=== PATIENT | male | born 1940 | race Caucasian/White ===

== ENCOUNTER 2021-05-27 00:37 | Emergency (ER) | payer OTHER ==
[~2021-05-27] VITALS: Ht 172.7 cm; Wt 61.2 kg
[~2021-05-27 00:37] MED LIST: AML5T PO; CIP500T PO; FOLI1TAB6 PO; GABA300C10 PO; PANT40T PO; TAM04C PO; THI100I IV
[2021-05-27 01:58] LABS: Basophils # (auto) 0 10 ^3/uL (0-0.2); Eosinophils # (auto) 0.1 10 ^3/uL (0-0.8); Lymphocytes # (auto) 0.8 10 ^3/uL (0.4-5.4); Monocytes # (auto) 0.4 10 ^3/uL (0-1.3); Neutrophils # (auto) 3.3 10 ^3/uL (1.6-8.6); Nucleated Red Blood Cells % 0.1 %; White Blood Cell 4.7 10^3/uL (4.4-10.8)
[2021-05-27 02:00] LABS: Basophils % (auto) 0.6 % (0.0-2.0); Eosinophils % (auto) 1.2 % (0.0-7.0); Hematocrit 43.1 % (41.0-53.0); Hemoglobin 15.2 g/dL (13.5-17.5); Lymphocytes % (auto) 17.4 % (10.0-50.0); Mean Corpuscular Hemoglobin 42.1 pg (28.0-32.0); Mean Corpuscular Hgb Conc. 35.4 g/dL (32.0-36.0); Mean Corpuscular Volume 118.8 fL (80.0-100.0); Neutrophils % (auto) 71.8 % (37.0-80.0); Red Blood Cells 3.62 10^6/uL (4.5-5.90); Red Cell Distribution Width 13.7 % (11.8-14.3)
[2021-05-27 02:11] LABS: INR 0.97 (0.9-1.15); Partial Thromboplastin Time 24.6 sec (23.0-31.2)
[2021-05-27 02:12] LABS: Albumin 3.5 g/dL (3.4-5.0); BUN/Creatinine Ratio 8.8; Calcium 7.9 mg/dL (8.5-10.1); Potassium 3.5 mmol/L (3.5-5.1)
[2021-05-27 02:15] LABS: Bilirubin, Total 0.3 mg/dL (0.2-1.0); Total Protein 7.9 g/dL (6.4-8.2)
[2021-05-27] MEDS ORDERED: NICOTINE 14 MG/24HR TOPICAL PATCH TD ONE (05:30)
[2021-05-27] MEDS ORDERED: LABETALOL HCL 5 MG/ML 4ML SYRINGE IV ONE (06:30)
[2021-05-27 06:39] VITALS: BP 173/86
== END 2021-05-27 07:25 | disposition home or self-care (01) ==
LOC: ER 00:37 → EDBD 00:37 → ER 07:25
DX: S00.83XA Contusion of other part of head, initial encounter (principal); J45.909 Unspecified asthma, uncomplicated; E78.5 Hyperlipidemia, unspecified; I10 Essential (primary) hypertension; M17.11 Unilateral primary osteoarthritis, right knee; F10.129 Alcohol abuse with intoxication, unspecified; F17.210 Nicotine dependence, cigarettes, uncomplicated; W18.39XA Other fall on same level, initial encounter; Y93.89 Activity, other specified; Y92.89 Other specified places as the place of occurrence of the external cause; Y99.8 Other external cause status; Y90.8 Blood alcohol level of 240 mg/100 ml or more
CPT/HCPCS: 36415; 70450; 70486; 71045; 72125; 73560; 80053; 80320; 85025; 85049; 85610; 85730; 93005; 96374; 99285; J3490

== ENCOUNTER 2022-09-02 13:49 | Inpatient (IN) | payer OTHER ==
[~2022-09-02] VITALS: Ht 167.6 cm; Wt 64.4 kg
[2022-09-02] MEDS ORDERED: SODIUM CHLORIDE 0.9% 1,000 ML IV ONE ×3 (14:45→18:00)
[2022-09-02] MEDS ORDERED: THIAMINE 100mg/ml INJ (200mg/2ml VIAL) IV ONE (15:00)
[2022-09-02 15:09] LABS: Basophils # (auto) 0 10 ^3/uL (0-0.2); Basophils % (auto) 0.2 % (0.0-2.0); Eosinophils # (auto) 0 10 ^3/uL (0-0.8); Hematocrit 41.9 % (41.0-53.0); Hemoglobin 14.6 g/dL (13.5-17.5); Lymphocytes # (auto) 0.4 10 ^3/uL (0.4-5.4); Lymphocytes % (auto) 2.4 % (10.0-50.0); Mean Corpuscular Hemoglobin 39.3 pg (28.0-32.0); Mean Corpuscular Hgb Conc. 34.9 g/dL (32.0-36.0); Mean Corpuscular Volume 112.7 fL (80.0-100.0); Monocytes # (auto) 1.4 10 ^3/uL (0-1.3); Monocytes % (auto) 8.5 % (0.0-12.0); Neutrophils % (auto) 88.9 % (37.0-80.0); Red Blood Cells 3.72 10^6/uL (4.5-5.90); Red Cell Distribution Width 12.6 % (11.8-14.3); White Blood Cell 16.9 10^3/uL (4.4-10.8)
[2022-09-02 15:25] LABS: INR 0.99 (0.9-1.15); Partial Thromboplastin Time 28.2 sec (24.6-33.4)
[2022-09-02 15:27] LABS: Albumin 3.3 g/dL (3.4-5.0); BUN/Creatinine Ratio 9.3; Calcium 8.6 mg/dL (8.5-10.1)
[2022-09-02 15:30] LABS: Bilirubin, Total 1.2 mg/dL (0.2-1.0); Total Protein 6.8 g/dL (6.4-8.2)
[2022-09-02] MEDS ORDERED: MORPHINE SULFATE INJ 2 MG/ml SYRG IV PRN (17:00)
[2022-09-02] MEDS ORDERED: NICOTINE 7MG/24HR TOPICAL PATCH TD ONE (17:00)
[2022-09-02] MEDS ORDERED: LIDOCAINE 2% JELLY 11ml (GLYDO) UR ONE (17:00)
[2022-09-02] MEDS ORDERED: NITROGLYCERIN 0.4 MG SL TAB SL PRN (17:00)
[2022-09-02] MEDS: FOLIC ACID 1 MG, MULTIPLE VITAMIN 10 ML, THIAMINE INJ 100 MG in SODIUM CHLORIDE 0.9% 1,... INJ SCH (17:15)
[2022-09-02] MEDS: LORazepam 2MG/ML-1ML VIAL IV SCH ×30 (17:15→23:45)
[2022-09-02] MEDS ORDERED: LORazepam 2MG/ML-1ML VIAL IV PRN (17:15)
[2022-09-02] MEDS ORDERED: SPIRONOLACTONE 25 MG TAB PO ONE (17:30)
[2022-09-02] MEDS ORDERED: SODIUM CHL 3% 500 ML IV ONE (18:00)
[2022-09-02 18:43] LABS: Cholesterol 153 mg/dL (< 200)
[2022-09-02 18:46] LABS: HDL Cholesterol 112 mg/dL (40-59); LDL Cholesterol 40 mg/dL (< 100); Triglycerides 62 mg/dL (< 150)
[2022-09-02] MEDS ORDERED: MAGNESIUM SULFATE 1GM/100ML 100 ML IV ONE (19:00)
[2022-09-02 19:57] LABS: Urine Bacteria NONE SEEN /hpf (None Seen); Urine Blood Negative /uL (Negative); Urine Hyaline Cast MOD /lpf (0 - 2); Urine Specific Gravity 1.014 (1.001-1.035); Urine WBC 3 /hpf (0 - 3)
[2022-09-02 20:12] LABS: Amphetamine Screen, Urine NEGATIVE (NEGATIVE); Barbiturate Scree,Urine NEGATIVE (NEGATIVE); Benzodiazephine Screen, Urine NEGATIVE (NEGATIVE); Cannabinoid Screen, Urine NEGATIVE (NEGATIVE); Cocaine Screen, Urine NEGATIVE (NEGATIVE); Opiate Scree,Urine NEGATIVE (NEGATIVE); Phencyclidine Screen, Urine NEGATIVE (NEGATIVE)
[2022-09-02 20:13] LABS: Creatinine, Urine 104 mg/dL (30.0-125.0); Sodium Urine 29 mmol/L (40-220)
[2022-09-02 23:34] VITALS: BP 164/54
[2022-09-03] VITALS (8 sets, daily range): BP systolic 121–174; BP diastolic 51–96
[2022-09-03] MEDS: LORazepam 2MG/ML-1ML VIAL IV SCH ×25 (00:15→11:07)
[2022-09-03 01:38] LABS: BUN/Creatinine Ratio 13.6
[2022-09-03 01:48] LABS: Potassium 2.4 mmol/L (3.5-5.1)
[2022-09-03] MEDS: POTASSIUM CHL 20 Meq TABLET PO SCH ×2 (02:37→04:15)
[2022-09-03] MEDS: HYDROcodone-ACET 5/325MG TAB PO PRN ×2 (06:04→20:21)
[2022-09-03 06:47] LABS: Basophils # (auto) 0.1 10 ^3/uL (0-0.2); Eosinophils # (auto) 0 10 ^3/uL (0-0.8); Neutrophils # (auto) 12.1 10 ^3/uL (1.6-8.6)
[2022-09-03 06:48] LABS: Basophils % (auto) 0.6 % (0.0-2.0); Hematocrit 34.6 % (41.0-53.0); Hemoglobin 12.4 g/dL (13.5-17.5); Lymphocytes # (auto) 0.4 10 ^3/uL (0.4-5.4); Lymphocytes % (auto) 3.1 % (10.0-50.0); Mean Corpuscular Hgb Conc. 35.9 g/dL (32.0-36.0); Mean Corpuscular Volume 114.3 fL (80.0-100.0); Monocytes % (auto) 7.3 % (0.0-12.0); Red Blood Cells 3.03 10^6/uL (4.5-5.90); White Blood Cell 13.6 10^3/uL (4.4-10.8)
[2022-09-03 06:49] LABS: Red Cell Distribution Width 12.4 % (11.8-14.3)
[2022-09-03 07:10] LABS: Albumin 2.5 g/dL (3.4-5.0); Calcium 7.7 mg/dL (8.5-10.1)
[2022-09-03 07:26] LABS: Bilirubin, Total 0.9 mg/dL (0.2-1.0); Total Protein 5.3 g/dL (6.4-8.2)
[2022-09-03 07:57] LABS: Potassium 2.9 mmol/L (3.5-5.1)
[2022-09-03 08:09] LABS: BUN/Creatinine Ratio 11.8
[2022-09-03] MEDS ORDERED: POTASSIUM EFFERVESENT TAB 25 MEQ PO ONE (09:00)
[2022-09-03 09:48] LABS: Magnesium 1.6 mg/dL (1.6-2.6); Phosphorus 2.4 mg/dL (2.5-4.90)
[2022-09-03] MEDS: NICOTINE 7MG/24HR TOPICAL PATCH TD SCH (11:04)
[2022-09-03 12:46] LABS: BUN/Creatinine Ratio 12.3; Calcium 7.8 mg/dL (8.5-10.1); Potassium 3.9 mmol/L (3.5-5.1)
[2022-09-03] MEDS: FOLIC ACID 1 MG, MULTIPLE VITAMIN 10 ML, THIAMINE INJ 100 MG in SODIUM CHLORIDE 0.9% 1,... INJ SCH (14:34)
[2022-09-03] MEDS ORDERED: FUROSEMIDE 40 MG/4 ML VIAL IV ONE (14:45)
[2022-09-03] MEDS ORDERED: D5W 5% 500 ML IV ONE (15:45)
[2022-09-03] MEDS ORDERED: HYDR12.56 PO (16:40)
[2022-09-03] MEDS ORDERED: BACL10TA PO (16:40)
[2022-09-03] MEDS ORDERED: HYDR25TA87 PO (16:40)
[2022-09-03] MEDS ORDERED: TRAZ1TAB12 PO (16:40)
[2022-09-03] MEDS ORDERED: PANT40TA2 PO (16:40)
[2022-09-03] MEDS ORDERED: DOCU-94 PO (16:40)
[2022-09-03] MEDS ORDERED: BUSP10TA90 PO (16:40)
[2022-09-03] MEDS: hydrALAZINE HCL 20 MG/ML VL IV PRN (18:39)
[2022-09-03 18:52] LABS: BUN/Creatinine Ratio 9.1
[2022-09-03 18:58] LABS: Potassium 2.9 mmol/L (3.5-5.1)
[2022-09-03] MEDS ORDERED: POTASSIUM CHL 20 Meq TABLET PO ONE (19:15)
[2022-09-03] MEDS: POTASSIUM CHL 20MEQ/100ML 100 ML IV SCH ×2 (20:09→22:01)
[2022-09-03] MEDS: LORazepam 2MG/ML-1ML VIAL IV PRN (23:08)
[2022-09-04] VITALS (8 sets, daily range): BP systolic 123–169; BP diastolic 64–86
[2022-09-04 04:37] LABS: Basophils # (auto) 0 10 ^3/uL (0-0.2); Eosinophils # (auto) 0 10 ^3/uL (0-0.8); Eosinophils % (auto) 0.1 % (0.0-7.0); Lymphocytes # (auto) 0.8 10 ^3/uL (0.4-5.4); Monocytes # (auto) 1.1 10 ^3/uL (0-1.3)
[2022-09-04 04:41] LABS: Basophils % (auto) 0.1 % (0.0-2.0); Hematocrit 35.7 % (41.0-53.0); Hemoglobin 12.5 g/dL (13.5-17.5); Lymphocytes % (auto) 6.5 % (10.0-50.0); Mean Corpuscular Hemoglobin 40.3 pg (28.0-32.0); Mean Corpuscular Volume 115.1 fL (80.0-100.0); Monocytes % (auto) 8.7 % (0.0-12.0); Neutrophils # (auto) 10.5 10 ^3/uL (1.6-8.6); Neutrophils % (auto) 84.6 % (37.0-80.0); Red Cell Distribution Width 12.6 % (11.8-14.3); White Blood Cell 12.4 10^3/uL (4.4-10.8)
[2022-09-04 04:57] LABS: Calcium 7.8 mg/dL (8.5-10.1); Potassium 4.2 mmol/L (3.5-5.1)
[2022-09-04] MEDS: HYDROcodone-ACET 5/325MG TAB PO PRN ×3 (09:23→23:09)
[2022-09-04] MEDS: THIAMINE 100mg/ml INJ (200mg/2ml VIAL) IV SCH (09:26)
[2022-09-04] MEDS: LORazepam 2MG/ML-1ML VIAL IV PRN ×2 (09:28→20:06)
[2022-09-04] MEDS: hydrALAZINE HCL 20 MG/ML VL IV PRN ×2 (10:42→18:58)
[2022-09-04 11:24] LABS: Magnesium 1.3 mg/dL (1.6-2.6); Phosphorus 1.2 mg/dL (2.5-4.90)
[2022-09-04] MEDS: NICOTINE 7MG/24HR TOPICAL PATCH TD SCH (12:09)
[2022-09-04] MEDS ORDERED: SODIUM PHOSPHATES 40 MEQ in D5W 5% 250 ML IV ONE (14:15)
[2022-09-04] MEDS: MAGNESIUM OXIDE 400 MG TAB PO SCH ×2 (14:29→20:06)
[2022-09-04] MEDS: FOLIC ACID 1 MG, MULTIPLE VITAMIN 10 ML, THIAMINE INJ 100 MG in SODIUM CHLORIDE 0.9% 1,... INJ SCH (15:01)
[2022-09-04] MEDS: MAGNESIUM SULFATE 1GM/100ML 100 ML IV SCH ×3 (15:10→17:54)
[2022-09-05] VITALS (8 sets, daily range): BP systolic 139–198; BP diastolic 69–111
[2022-09-05 04:59] LABS: Basophils # (auto) 0 10 ^3/uL (0-0.2); Eosinophils # (auto) 0 10 ^3/uL (0-0.8); Hematocrit 37.4 % (41.0-53.0); Neutrophils # (auto) 12.8 10 ^3/uL (1.6-8.6); White Blood Cell 14.9 10^3/uL (4.4-10.8)
[2022-09-05 05:02] LABS: Basophils % (auto) 0.1 % (0.0-2.0); Eosinophils % (auto) 0.2 % (0.0-7.0); Lymphocytes # (auto) 0.7 10 ^3/uL (0.4-5.4); Lymphocytes % (auto) 4.5 % (10.0-50.0); Mean Corpuscular Hgb Conc. 34.7 g/dL (32.0-36.0); Mean Corpuscular Volume 115.3 fL (80.0-100.0); Monocytes # (auto) 1.4 10 ^3/uL (0-1.3); Monocytes % (auto) 9.5 % (0.0-12.0); Neutrophils % (auto) 85.7 % (37.0-80.0); Nucleated Red Blood Cells % 0.1 %; Red Blood Cells 3.24 10^6/uL (4.5-5.90); Red Cell Distribution Width 12.3 % (11.8-14.3)
[2022-09-05 05:21] LABS: Potassium 3.3 mmol/L (3.5-5.1)
[2022-09-05 05:28] LABS: Albumin 2.4 g/dL (3.4-5.0); BUN/Creatinine Ratio 9.6; Bilirubin, Total 0.6 mg/dL (0.2-1.0); Calcium 7.5 mg/dL (8.5-10.1); Phosphorus 2.4 mg/dL (2.5-4.90); Total Protein 5.6 g/dL (6.4-8.2)
[2022-09-05] MEDS: HYDROcodone-ACET 5/325MG TAB PO PRN ×3 (08:30→20:40)
[2022-09-05] MEDS: MAGNESIUM OXIDE 400 MG TAB PO SCH ×2 (09:14→22:42)
[2022-09-05] MEDS: THIAMINE 100mg/ml INJ (200mg/2ml VIAL) IV SCH (09:17)
[2022-09-05] MEDS: NICOTINE 7MG/24HR TOPICAL PATCH TD SCH (09:18)
[2022-09-05] MEDS ORDERED: PANTOPRAZOLE 40 MG TAB PO ONE ×2 (12:45→12:53)
[2022-09-05] MEDS: FOLIC ACID 1 MG, MULTIPLE VITAMIN 10 ML, THIAMINE INJ 100 MG in SODIUM CHLORIDE 0.9% 1,... INJ SCH (12:56)
[2022-09-05] MEDS: hydrALAZINE HCL 20 MG/ML VL IV PRN ×2 (13:31→17:26)
[2022-09-05] MEDS ORDERED: amLODIPine BESYLATE 5 MG TAB PO ONE (17:15)
[2022-09-05] MEDS ORDERED: hydrALAZINE HCL 20 MG/ML VL IV ONE (17:15)
[2022-09-05] MEDS: IPRATROPIUM BROM 0.5 MG/2.5ML INH SOL NEB SCH ×2 (19:08→22:02)
[2022-09-05] MEDS: ALBUTEROL SULF 2.5 MG/0.5ML(0.5%) NEB SOLN NEB SCH ×2 (19:08→22:02)
[2022-09-05] MEDS: GABAPENTIN 300 MG CAP PO SCH (22:42)
[2022-09-06 05:00] VITALS: BP 151/67
[2022-09-06] MEDS: GABAPENTIN 300 MG CAP PO SCH ×3 (05:42→21:18)
[2022-09-06] MEDS: hydrALAZINE HCL 20 MG/ML VL IV PRN (05:44)
[2022-09-06] MEDS: ALBUTEROL SULF 2.5 MG/0.5ML(0.5%) NEB SOLN NEB SCH ×6 (06:06→22:31)
[2022-09-06] MEDS: IPRATROPIUM BROM 0.5 MG/2.5ML INH SOL NEB SCH ×6 (06:07→22:31)
[2022-09-06 06:35] LABS: Basophils # (auto) 0 10 ^3/uL (0-0.2); Basophils % (auto) 0.1 % (0.0-2.0); Eosinophils # (auto) 0 10 ^3/uL (0-0.8); Eosinophils % (auto) 0.4 % (0.0-7.0); Hematocrit 35.8 % (41.0-53.0); Hemoglobin 12.9 g/dL (13.5-17.5); Lymphocytes # (auto) 0.8 10 ^3/uL (0.4-5.4); Lymphocytes % (auto) 8.4 % (10.0-50.0); Mean Corpuscular Hemoglobin 40.9 pg (28.0-32.0); Mean Corpuscular Volume 113.7 fL (80.0-100.0); Monocytes # (auto) 1.4 10 ^3/uL (0-1.3); Monocytes % (auto) 14.7 % (0.0-12.0); Neutrophils % (auto) 76.4 % (37.0-80.0); Red Blood Cells 3.15 10^6/uL (4.5-5.90); Red Cell Distribution Width 12.3 % (11.8-14.3); White Blood Cell 9.2 10^3/uL (4.4-10.8)
[2022-09-06 06:46] LABS: BUN/Creatinine Ratio 8.5; Calcium 7.9 mg/dL (8.5-10.1); Magnesium 1.9 mg/dL (1.6-2.6); Phosphorus 2.8 mg/dL (2.5-4.90); Potassium 3.4 mmol/L (3.5-5.1)
[2022-09-06] MEDS: HYDROcodone-ACET 5/325MG TAB PO PRN ×2 (08:57→20:30)
[2022-09-06 09:00] VITALS: BP 119/59
[2022-09-06] MEDS: THIAMINE 100mg/ml INJ (200mg/2ml VIAL) IV SCH (09:37)
[2022-09-06] MEDS: MAGNESIUM OXIDE 400 MG TAB PO SCH ×2 (09:38→21:18)
[2022-09-06] MEDS: hydrALAZINE HCL 25 MG TAB PO SCH (09:38)
[2022-09-06] MEDS: amLODIPine BESYLATE 5 MG TAB PO SCH (09:38)
[2022-09-06] MEDS: PANTOPRAZOLE 40 MG TAB PO SCH (09:39)
[2022-09-06] MEDS: FINASTERIDE 5 MG TAB PO SCH (09:39)
[2022-09-06] MEDS: NICOTINE 7MG/24HR TOPICAL PATCH TD SCH (09:40)
[2022-09-06] MEDS: FOLIC ACID 1 MG, MULTIPLE VITAMIN 10 ML, THIAMINE INJ 100 MG in SODIUM CHLORIDE 0.9% 1,... INJ SCH (11:57)
[2022-09-06 13:00] VITALS: BP 129/66
[2022-09-06] MEDS: LORazepam 2MG/ML-1ML VIAL IV PRN (14:10)
[2022-09-06 17:00] VITALS: BP 121/65
[2022-09-06 21:45] VITALS: BP 128/79
[2022-09-07] MEDS: HYDROcodone-ACET 5/325MG TAB PO PRN ×4 (02:30→22:00)
[2022-09-07 04:33] VITALS: BP 138/62
[2022-09-07] MEDS: GABAPENTIN 300 MG CAP PO SCH ×3 (05:54→21:51)
[2022-09-07] MEDS: IPRATROPIUM BROM 0.5 MG/2.5ML INH SOL NEB SCH ×5 (06:42→18:58)
[2022-09-07 06:43] LABS: Basophils # (auto) 0 10 ^3/uL (0-0.2); Eosinophils # (auto) 0.1 10 ^3/uL (0-0.8)
[2022-09-07 06:47] LABS: Basophils % (auto) 0.2 % (0.0-2.0); Eosinophils % (auto) 1.1 % (0.0-7.0); Hematocrit 33.1 % (41.0-53.0); Hemoglobin 11.7 g/dL (13.5-17.5); Lymphocytes # (auto) 0.8 10 ^3/uL (0.4-5.4); Lymphocytes % (auto) 8.9 % (10.0-50.0); Mean Corpuscular Hemoglobin 40.4 pg (28.0-32.0); Mean Corpuscular Hgb Conc. 35.4 g/dL (32.0-36.0); Mean Corpuscular Volume 114.1 fL (80.0-100.0); Monocytes # (auto) 1.3 10 ^3/uL (0-1.3); Monocytes % (auto) 15.6 % (0.0-12.0); Neutrophils # (auto) 6.3 10 ^3/uL (1.6-8.6); Neutrophils % (auto) 74.2 % (37.0-80.0); Red Cell Distribution Width 12.4 % (11.8-14.3); White Blood Cell 8.4 10^3/uL (4.4-10.8)
[2022-09-07 07:03] LABS: Calcium 7.7 mg/dL (8.5-10.1); Potassium 3.2 mmol/L (3.5-5.1)
[2022-09-07 07:07] LABS: BUN/Creatinine Ratio 14.9; Magnesium 1.9 mg/dL (1.6-2.6)
[2022-09-07 09:07] VITALS: BP 154/80
[2022-09-07] MEDS: NICOTINE 7MG/24HR TOPICAL PATCH TD SCH (09:40)
[2022-09-07] MEDS: hydrALAZINE HCL 25 MG TAB PO SCH (09:41)
[2022-09-07] MEDS: amLODIPine BESYLATE 5 MG TAB PO SCH (09:41)
[2022-09-07] MEDS: PANTOPRAZOLE 40 MG TAB PO SCH (09:41)
[2022-09-07] MEDS: FINASTERIDE 5 MG TAB PO SCH (09:42)
[2022-09-07] MEDS: THIAMINE 100mg/ml INJ (200mg/2ml VIAL) IV SCH (09:43)
[2022-09-07] MEDS: MAGNESIUM OXIDE 400 MG TAB PO SCH ×2 (09:47→21:51)
[2022-09-07] MEDS: ALBUTEROL SULF 2.5 MG/0.5ML(0.5%) NEB SOLN NEB SCH ×4 (09:51→18:58)
[2022-09-07] MEDS ORDERED: POTASSIUM EFFERVESENT TAB 25 MEQ PO ONE (12:15)
[2022-09-07] MEDS: FOLIC ACID 1 MG, MULTIPLE VITAMIN 10 ML, THIAMINE INJ 100 MG in SODIUM CHLORIDE 0.9% 1,... INJ SCH (12:56)
[2022-09-07 13:00] VITALS: BP 147/68
[2022-09-07 16:38] VITALS: BP 151/79
[2022-09-07 21:38] VITALS: BP 155/83
[2022-09-07] MEDS: hydrALAZINE HCL 20 MG/ML VL IV PRN (21:51)
[2022-09-08 04:27] VITALS: BP 143/72
[2022-09-08] MEDS: HYDROcodone-ACET 5/325MG TAB PO PRN (04:33)
[2022-09-08] MEDS: GABAPENTIN 300 MG CAP PO SCH ×3 (05:50→22:05)
[2022-09-08] MEDS: ALBUTEROL SULF 2.5 MG/0.5ML(0.5%) NEB SOLN NEB SCH ×6 (06:24→22:11)
[2022-09-08] MEDS: IPRATROPIUM BROM 0.5 MG/2.5ML INH SOL NEB SCH ×6 (06:24→22:11)
[2022-09-08] MEDS ORDERED: LACTULOSE 20Gm/30ML SOLN PO PRN (09:00)
[2022-09-08 09:18] VITALS: BP 101/43
[2022-09-08] MEDS: THIAMINE 100mg/ml INJ (200mg/2ml VIAL) IV SCH (10:20)
[2022-09-08] MEDS: PANTOPRAZOLE 40 MG TAB PO SCH (10:20)
[2022-09-08] MEDS: MAGNESIUM OXIDE 400 MG TAB PO SCH ×2 (10:20→22:05)
[2022-09-08] MEDS: FINASTERIDE 5 MG TAB PO SCH (10:20)
[2022-09-08] MEDS: NICOTINE 7MG/24HR TOPICAL PATCH TD SCH (10:27)
[2022-09-08] MEDS: hydrALAZINE HCL 25 MG TAB PO SCH (10:47)
[2022-09-08] MEDS: amLODIPine BESYLATE 5 MG TAB PO SCH (10:48)
[2022-09-08] MEDS ORDERED: POTASSIUM EFFERVESENT TAB 25 MEQ PO ONE (12:30)
[2022-09-08 12:33] VITALS: BP 165/79
[2022-09-08] MEDS: FOLIC ACID 1 MG, MULTIPLE VITAMIN 10 ML, THIAMINE INJ 100 MG in SODIUM CHLORIDE 0.9% 1,... INJ SCH (14:00)
[2022-09-08] MEDS: LORazepam 2MG/ML-1ML VIAL IV PRN (15:32)
[2022-09-08 16:45] VITALS: BP 125/77
[2022-09-08 22:05] VITALS: BP 158/79
[2022-09-08] MEDS: DOCUSATE SOD 100 MG CAP PO SCH (22:05)
[2022-09-08] MEDS: hydrALAZINE HCL 20 MG/ML VL IV PRN (22:26)
[2022-09-08 23:02] VITALS: BP 158/79
[2022-09-09] MEDS ORDERED: TEMAZEPAM 15 MG CAP PO ONE (01:00)
[2022-09-09 05:00] VITALS: BP 154/74
[2022-09-09] MEDS: GABAPENTIN 300 MG CAP PO SCH ×2 (05:31→16:43)
[2022-09-09 06:00] LABS: Basophils # (auto) 0 10 ^3/uL (0-0.2); Basophils % (auto) 0.3 % (0.0-2.0); Eosinophils # (auto) 0.1 10 ^3/uL (0-0.8); Hematocrit 35.3 % (41.0-53.0); Hemoglobin 12.3 g/dL (13.5-17.5); Lymphocytes # (auto) 0.7 10 ^3/uL (0.4-5.4); Lymphocytes % (auto) 8.8 % (10.0-50.0); Mean Corpuscular Hgb Conc. 34.9 g/dL (32.0-36.0); Mean Corpuscular Volume 114.6 fL (80.0-100.0); Monocytes # (auto) 1.1 10 ^3/uL (0-1.3); Monocytes % (auto) 13.7 % (0.0-12.0); Neutrophils # (auto) 6.1 10 ^3/uL (1.6-8.6); Neutrophils % (auto) 76.2 % (37.0-80.0); Red Blood Cells 3.08 10^6/uL (4.5-5.90); Red Cell Distribution Width 12.6 % (11.8-14.3)
[2022-09-09 06:15] LABS: BUN/Creatinine Ratio 8.3; Calcium 8.2 mg/dL (8.5-10.1); Phosphorus 2.7 mg/dL (2.5-4.90); Potassium 4.4 mmol/L (3.5-5.1)
[2022-09-09] MEDS: ALBUTEROL SULF 2.5 MG/0.5ML(0.5%) NEB SOLN NEB SCH ×6 (06:19→18:00)
[2022-09-09] MEDS: IPRATROPIUM BROM 0.5 MG/2.5ML INH SOL NEB SCH ×6 (06:19→18:00)
[2022-09-09] MEDS: LORazepam 2MG/ML-1ML VIAL IV PRN ×3 (07:38→17:32)
[2022-09-09 08:00] VITALS: BP 119/57
[2022-09-09] MEDS: hydrALAZINE HCL 25 MG TAB PO SCH (10:01)
[2022-09-09] MEDS: PANTOPRAZOLE 40 MG TAB PO SCH (10:01)
[2022-09-09] MEDS: THIAMINE 100mg/ml INJ (200mg/2ml VIAL) IV SCH (10:01)
[2022-09-09] MEDS: DOCUSATE SOD 100 MG CAP PO SCH (10:01)
[2022-09-09] MEDS: amLODIPine BESYLATE 5 MG TAB PO SCH (10:02)
[2022-09-09] MEDS: MAGNESIUM OXIDE 400 MG TAB PO SCH (10:02)
[2022-09-09] MEDS: FINASTERIDE 5 MG TAB PO SCH (10:02)
[2022-09-09] MEDS: NICOTINE 7MG/24HR TOPICAL PATCH TD SCH (10:03)
[2022-09-09 12:00] VITALS: BP 137/64
[2022-09-09] MEDS: FOLIC ACID 1 MG, MULTIPLE VITAMIN 10 ML, THIAMINE INJ 100 MG in SODIUM CHLORIDE 0.9% 1,... INJ SCH (12:00)
[2022-09-09 16:00] VITALS: BP 148/79
== END 2022-09-09 17:57 | DRG 189 ==
LOC: ER 13:49 → TELE 16:53 → ICU WEST 23:23 → DOU IN ICU 09-04 18:22 → TELE-WESTW 09-05 16:35
PROVIDERS: ADMIT Registered Nurse; ATTEND Internal Medicine
DX: J96.01 Acute respiratory failure with hypoxia (principal); E87.1 Hypo-osmolality and hyponatremia; J98.11 Atelectasis; N39.0 Urinary tract infection, site not specified; Z20.822 Contact with and (suspected) exposure to COVID-19; X58.XXXA Exposure to other specified factors, initial encounter; S00.83XA Contusion of other part of head, initial encounter; N40.1 Benign prostatic hyperplasia with lower urinary tract symptoms; E78.5 Hyperlipidemia, unspecified; R73.9 Hyperglycemia, unspecified; R29.6 Repeated falls; R33.8 Other retention of urine; M17.11 Unilateral primary osteoarthritis, right knee; E87.6 Hypokalemia; E86.0 Dehydration; F10.220 Alcohol dependence with intoxication, uncomplicated; I10 Essential (primary) hypertension; F17.210 Nicotine dependence, cigarettes, uncomplicated; J45.909 Unspecified asthma, uncomplicated; Z79.899 Other long term (current) drug therapy; Y93.89 Activity, other specified; Y92.89 Other specified places as the place of occurrence of the external cause; Y99.8 Other external cause status
CPT/HCPCS: 36415; 70450; 71045; 72192; 73560; 80048; 80053; 80061; 80307; 80320; 81001; 82150; 82570; 83036; 83735; 83880; 83930; 83935; 84100; 84132; 84154; 84300; 84484; 85025; 85610; 85730; 87040; 87081; 87086; 87426; 93005; 93306; 93886; 94640; 96361; 96365; 96375; 97110; 97116; 97163; 97530; G0378; J3480; J7060

== ENCOUNTER 2023-02-14 15:32 | Emergency (ER) | payer OTHER ==
[~2023-02-14] VITALS: Ht 167.6 cm; Wt 68.2 kg
[~2023-02-14 15:32] MED LIST changes: +BACL10TA PO; +BUSP10TA90 PO; +DOCU-94 PO; +HYDR12.56 PO; +HYDR25TA87 PO; +PANT40TA2 PO; +TRAZ1TAB12 PO
[2023-02-14] MEDS ORDERED: HYDROmorphone HCL 2 MG/ML VL/or syr IM ONE (16:00)
[2023-02-14 16:37] LABS: Basophils # (auto) 0 10 ^3/uL (0-0.2); Basophils % (auto) 0.5 % (0.0-2.0); Eosinophils # (auto) 0.1 10 ^3/uL (0-0.8); Eosinophils % (auto) 1.1 % (0.0-7.0); Red Cell Distribution Width 13.6 % (11.8-14.3); White Blood Cell 7.6 10^3/uL (4.4-10.8)
[2023-02-14 16:40] LABS: Hematocrit 41.4 % (41.0-53.0); Hemoglobin 13.9 g/dL (13.5-17.5); Lymphocytes % (auto) 13.8 % (10.0-50.0); Mean Corpuscular Hemoglobin 35.2 pg (28.0-32.0); Mean Corpuscular Hgb Conc. 33.5 g/dL (32.0-36.0); Mean Corpuscular Volume 104.9 fL (80.0-100.0); Monocytes # (auto) 0.8 10 ^3/uL (0-1.3); Monocytes % (auto) 10.2 % (0.0-12.0); Neutrophils # (auto) 5.6 10 ^3/uL (1.6-8.6); Neutrophils % (auto) 74.4 % (37.0-80.0); Red Blood Cells 3.94 10^6/uL (4.5-5.90)
[2023-02-14 16:49] LABS: Albumin 2.9 g/dL (3.4-5.0); Calcium 8.9 mg/dL (8.5-10.1); Potassium 5.4 mmol/L (3.5-5.1)
[2023-02-14 16:54] LABS: Bilirubin, Total 0.3 mg/dL (0.2-1.0); Total Protein 7.8 g/dL (6.4-8.2)
[2023-02-14] MEDS ORDERED: cefTRIAXone SOD 1,000 MG VL IM ONE (20:45)
[2023-02-14] MEDS ORDERED: HYDROcodone-ACET 5/325MG TAB PO ONE (20:45)
[2023-02-14] MEDS ORDERED: TETANUS-DIPTH-ACEL PERTUSSIS 0.5ML SYR Tdap IM ONE (20:45)
[2023-02-14] MEDS ORDERED: MAX35OO TOP (21:10)
[2023-02-14] MEDS ORDERED: BACDST PO (21:10)
[2023-02-14] MEDS ORDERED: HYDR-4902 PO (21:14)
[2023-02-14] MEDS ORDERED: NEOMYCIN-BACITRACIN-POLYM 15GM TOP OINT TOP SCH (22:00)
[2023-02-14 22:43] VITALS: BP 148/48
== END 2023-02-14 22:53 | disposition home or self-care (01) ==
LOC: ER 15:32
DX: M79.661 Pain in right lower leg (principal); L08.9 Local infection of the skin and subcutaneous tissue, unspecified; N28.9 Disorder of kidney and ureter, unspecified
CPT/HCPCS: 36415; 80053; 83690; 85025; 85652; 90471; 90715; 93971; 96372; 99285; J0696; J1170; 96376

== ENCOUNTER 2023-02-18 07:22 | Inpatient (IN) | payer OTHER ==
[~2023-02-18] VITALS: Ht 167.6 cm; Wt 69.9 kg
[~2023-02-18 07:22] MED LIST changes: +BACDST PO; +HYDR-4902 PO; +MAX35OO TOP
[2023-02-18 08:17] LABS: Basophils # (auto) 0.1 10 ^3/uL (0-0.2); Eosinophils # (auto) 0 10 ^3/uL (0-0.8); Hemoglobin 12.6 g/dL (13.5-17.5); Monocytes # (auto) 1.2 10 ^3/uL (0-1.3); Monocytes % (auto) 10.3 % (0.0-12.0)
[2023-02-18 08:19] LABS: Basophils % (auto) 0.5 % (0.0-2.0); Eosinophils % (auto) 0.1 % (0.0-7.0); Hematocrit 37.2 % (41.0-53.0); Lymphocytes % (auto) 8.8 % (10.0-50.0); Mean Corpuscular Hemoglobin 35.4 pg (28.0-32.0); Mean Corpuscular Volume 104.2 fL (80.0-100.0); Neutrophils # (auto) 9.4 10 ^3/uL (1.6-8.6); Neutrophils % (auto) 80.3 % (37.0-80.0); Red Blood Cells 3.57 10^6/uL (4.5-5.90); Red Cell Distribution Width 13.6 % (11.8-14.3); White Blood Cell 11.7 10^3/uL (4.4-10.8)
[2023-02-18 08:37] LABS: Calcium 8.9 mg/dL (8.5-10.1); Potassium 4.7 mmol/L (3.5-5.1)
[2023-02-18 08:41] LABS: BUN/Creatinine Ratio 12.1 (10.0-20.0); Bilirubin, Total 0.2 mg/dL (0.2-1.0); Total Protein 7.8 g/dL (6.4-8.2)
[2023-02-18] MEDS ORDERED: cefTRIAXone 1GM/50ML D5W 50 ML IV ONE (08:45)
[2023-02-18] MEDS ORDERED: CLINDAMYCIN 300MG IV 50 ML IV ONE (08:45)
[2023-02-18 09:32] LABS: Urine Bacteria NONE SEEN /hpf (None Seen); Urine Blood 1+ /uL (Negative); Urine Hyaline Cast MANY /lpf (0 - 2); Urine Mucus FEW (None Seen); Urine Specific Gravity 1.021 (1.001-1.035); Urine WBC 2 /hpf (0 - 3)
[2023-02-18] MEDS ORDERED: TAMS0.4C36 PO (10:04)
[2023-02-18] MEDS ORDERED: AMLO-496 PO (10:04)
[2023-02-18] MEDS ORDERED: HYDR12.55 PO (10:04)
[2023-02-18] MEDS ORDERED: NITROGLYCERIN 0.4 MG SL TAB SL PRN (10:15)
[2023-02-18] MEDS ORDERED: SODIUM CHLORIDE 0.9% 1,000 ML IV ONE (10:15)
[2023-02-18] MEDS ORDERED: MORPHINE SULFATE INJ 2 MG/ml SYRG IV PRN (10:15)
[2023-02-18 10:56] LABS: Cholesterol 106 mg/dL (< 200); HDL Cholesterol 45 mg/dL (40-59); LDL Cholesterol 49 mg/dL (< 100); Triglycerides 93 mg/dL (< 150)
[2023-02-18] MEDS: SODIUM CHLORIDE 0.9% 1,000 ML IV SCH ×3 (10:56→21:40)
[2023-02-18 11:00] VITALS: BP 149/51
[2023-02-18 11:03] LABS: INR 1.06 (0.9-1.15); Partial Thromboplastin Time 29.5 sec (24.6-33.4)
[2023-02-18] MEDS ORDERED: FUROSEMIDE 20 MG/2 ML VIAL IV ONE (11:15)
[2023-02-18] MEDS ORDERED: PANTOPRAZOLE 40 MG/10 ML VIAL INJ IV ONE (11:15)
[2023-02-18 13:08] LABS: Alcohol, Urine < 3.0 mg/dL (0-10); Amphetamine Screen, Urine NEGATIVE (NEGATIVE); Barbiturate Scree,Urine NEGATIVE (NEGATIVE); Benzodiazephine Screen, Urine NEGATIVE (NEGATIVE); Cannabinoid Screen, Urine NEGATIVE (NEGATIVE); Cocaine Screen, Urine NEGATIVE (NEGATIVE); Opiate Scree,Urine POSITIVE (NEGATIVE); Phencyclidine Screen, Urine NEGATIVE (NEGATIVE)
[2023-02-18] MEDS ORDERED: HALOPERIDOL LACTATE 5 MG/ML INJ VIAL IM ONE (13:30)
[2023-02-18] MEDS: hydrALAZINE HCL 20 MG/ML VL IV PRN ×2 (13:57→20:56)
[2023-02-18] MEDS ORDERED: CLINDAMYCIN 600MG IV 50 ML IV SCH (14:00)
[2023-02-18] MEDS ORDERED: LORazepam 2MG/ML-1ML VIAL IV ONE (21:15)
[2023-02-18] MEDS: CLINDAMYCIN 300MG IV 50 ML IV SCH ×2 (21:44→23:12)
[2023-02-18] MEDS ORDERED: THIAMINE 100mg/ml INJ (200mg/2ml VIAL) IV ONE (21:45)
[2023-02-18] MEDS ORDERED: LORazepam 2MG/ML-1ML VIAL IV PRN (21:45)
[2023-02-18] MEDS: HEPARIN SODIUM (PORCINE) 5000 UNITS/ML 1ML VIAL SC SCH (21:45)
[2023-02-19] MEDS: ALBUTEROL SULF 2.5 MG/0.5ML(0.5%) NEB SOLN NEB PRN ×3 (04:24→22:03)
[2023-02-19 05:09] LABS: Eosinophils # (auto) 0 10 ^3/uL (0-0.8); Hemoglobin 11.4 g/dL (13.5-17.5); Lymphocytes # (auto) 0.8 10 ^3/uL (0.4-5.4)
[2023-02-19 05:11] LABS: Basophils # (auto) 0.1 10 ^3/uL (0-0.2); Basophils % (auto) 0.5 % (0.0-2.0); Hematocrit 33.4 % (41.0-53.0); Lymphocytes % (auto) 6.7 % (10.0-50.0); Mean Corpuscular Hemoglobin 35.3 pg (28.0-32.0); Mean Corpuscular Hgb Conc. 34.1 g/dL (32.0-36.0); Mean Corpuscular Volume 103.6 fL (80.0-100.0); Monocytes # (auto) 1.3 10 ^3/uL (0-1.3); Monocytes % (auto) 10.5 % (0.0-12.0); Neutrophils % (auto) 82.3 % (37.0-80.0); Nucleated Red Blood Cells % 0.1 %; Red Blood Cells 3.22 10^6/uL (4.5-5.90); Red Cell Distribution Width 13.5 % (11.8-14.3); White Blood Cell 12.2 10^3/uL (4.4-10.8)
[2023-02-19 05:28] LABS: Albumin 2.5 g/dL (3.4-5.0); Calcium 8.3 mg/dL (8.5-10.1); Potassium 4.6 mmol/L (3.5-5.1)
[2023-02-19 05:34] LABS: BUN/Creatinine Ratio 12.6 (10.0-20.0); Bilirubin, Total 0.3 mg/dL (0.2-1.0); Total Protein 7.1 g/dL (6.4-8.2)
[2023-02-19] MEDS: CLINDAMYCIN 300MG IV 50 ML IV SCH ×4 (06:01→20:28)
[2023-02-19] MEDS: LORazepam 0.5 MG TAB PO PRN (07:49)
[2023-02-19 09:00] VITALS: BP 145/39
[2023-02-19 09:23] VITALS: BP 159/45
[2023-02-19] MEDS ORDERED: PATIENTS OWN MEDICATION (Hydrochlorothiazide 1 TAB) PO SCH (10:00)
[2023-02-19] MEDS ORDERED: amLODIPine BESYLATE 5 MG TAB PO SCH (10:00)
[2023-02-19] MEDS ORDERED: PATIENTS OWN MEDICATION (Folic Acid 1 MG) PO SCH (10:00)
[2023-02-19] MEDS ORDERED: hydrALAZINE HCL 25 MG TAB PO SCH (10:00)
[2023-02-19] MEDS: cefTRIAXone 1GM/50ML D5W 50 ML IV SCH (10:01)
[2023-02-19] MEDS ORDERED: HYDR-3682 PO (10:22)
[2023-02-19] MEDS: FUROSEMIDE 20 MG/2 ML VIAL IV SCH (12:40)
[2023-02-19] MEDS: THIAMINE 100mg/ml INJ (200mg/2ml VIAL) IV SCH (12:42)
[2023-02-19] MEDS: FOLIC ACID 1 MG TAB PO SCH (12:51)
[2023-02-19] MEDS: TAMSULOSIN HYDROCHLORIDE 0.4 MG CAP PO SCH (12:53)
[2023-02-19] MEDS: POTASSIUM CHLORIDE 8 MEQ TAB PO SCH (12:53)
[2023-02-19] MEDS: HCTZ 25 MG TAB PO SCH (12:57)
[2023-02-19] MEDS: HEPARIN SODIUM (PORCINE) 5000 UNITS/ML 1ML VIAL SC SCH ×2 (13:01→22:08)
[2023-02-19] MEDS: PANTOPRAZOLE 40 MG/10 ML VIAL INJ IV SCH (13:04)
[2023-02-19 17:00] VITALS: BP 155/60
[2023-02-19] MEDS: SODIUM CHLORIDE 0.9% 1,000 ML IV SCH (18:33)
[2023-02-19] MEDS: ACETAMINOPHEN 325 MG TAB PO PRN (20:38)
[2023-02-19 21:30] VITALS: BP 103/69
[2023-02-20] MEDS: SODIUM CHLORIDE 0.9% 1,000 ML IV SCH ×4 (02:15→22:05)
[2023-02-20] MEDS: CLINDAMYCIN 300MG IV 50 ML IV SCH ×6 (02:56→22:04)
[2023-02-20] MEDS: LORazepam 0.5 MG TAB PO PRN ×3 (03:02→22:10)
[2023-02-20 05:00] VITALS: BP 104/58
[2023-02-20 06:13] LABS: BUN/Creatinine Ratio 18.8 (10.0-20.0); Calcium 8.6 mg/dL (8.5-10.1); Magnesium 1.9 mg/dL (1.6-2.6); Potassium 4.1 mmol/L (3.5-5.1)
[2023-02-20 08:00] VITALS: BP 146/69
[2023-02-20 09:00] VITALS: BP 146/69
[2023-02-20] MEDS: cefTRIAXone 1GM/50ML D5W 50 ML IV SCH (09:10)
[2023-02-20] MEDS: PANTOPRAZOLE 40 MG/10 ML VIAL INJ IV SCH (09:10)
[2023-02-20] MEDS: THIAMINE 100mg/ml INJ (200mg/2ml VIAL) IV SCH (09:10)
[2023-02-20] MEDS: POTASSIUM CHLORIDE 8 MEQ TAB PO SCH (09:13)
[2023-02-20] MEDS: FOLIC ACID 1 MG TAB PO SCH (09:14)
[2023-02-20] MEDS: TAMSULOSIN HYDROCHLORIDE 0.4 MG CAP PO SCH (09:14)
[2023-02-20] MEDS: HCTZ 25 MG TAB PO SCH (09:19)
[2023-02-20] MEDS: amLODIPine BESYLATE 5 MG TAB PO SCH (09:20)
[2023-02-20] MEDS: FUROSEMIDE 20 MG/2 ML VIAL IV SCH (09:21)
[2023-02-20] MEDS: ACETAMINOPHEN 325 MG TAB PO PRN (09:33)
[2023-02-20] MEDS: ALBUTEROL SULF 2.5 MG/0.5ML(0.5%) NEB SOLN NEB PRN (09:38)
[2023-02-20] MEDS ORDERED: hydrALAZINE HCL 25 MG TAB PO SCH (10:00)
[2023-02-20] MEDS: HEPARIN SODIUM (PORCINE) 5000 UNITS/ML 1ML VIAL SC SCH ×2 (11:45→22:00)
[2023-02-20 13:00] VITALS: BP 140/59
[2023-02-20] MEDS: ALBUTEROL SULF 2.5 MG/0.5ML(0.5%) NEB SOLN NEB SCH ×3 (14:07→22:07)
[2023-02-20] MEDS: IPRATROPIUM BROM 0.5 MG/2.5ML INH SOL NEB SCH ×3 (14:07→22:07)
[2023-02-20] MEDS: methylPREDNISolone SOD SUCC 40 MG/ML VL IV SCH ×2 (14:12→22:04)
[2023-02-20 16:34] VITALS: BP 114/58
[2023-02-20 22:00] VITALS: BP 141/78
[2023-02-20] MEDS: hydrALAZINE HCL 25 MG TAB PO SCH (22:00)
[2023-02-21] VITALS (8 sets, daily range): BP systolic 138–168; BP diastolic 61–81
[2023-02-21 01:35] LABS: Basophils # (auto) 0 10 ^3/uL (0-0.2); Eosinophils # (auto) 0 10 ^3/uL (0-0.8); Monocytes # (auto) 0.3 10 ^3/uL (0-1.3)
[2023-02-21 01:36] LABS: Basophils % (auto) 0.1 % (0.0-2.0); Hematocrit 30.2 % (41.0-53.0); Hemoglobin 10.3 g/dL (13.5-17.5); Lymphocytes # (auto) 0.4 10 ^3/uL (0.4-5.4); Lymphocytes % (auto) 3.1 % (10.0-50.0); Neutrophils # (auto) 13.6 10 ^3/uL (1.6-8.6); Neutrophils % (auto) 94.8 % (37.0-80.0); Red Blood Cells 2.94 10^6/uL (4.5-5.90); Red Cell Distribution Width 13.8 % (11.8-14.3); White Blood Cell 14.3 10^3/uL (4.4-10.8)
[2023-02-21 01:49] LABS: INR 1.21 (0.9-1.15); Partial Thromboplastin Time 26.3 sec (24.6-33.4)
[2023-02-21 01:53] LABS: Albumin 2.3 g/dL (3.4-5.0); BUN/Creatinine Ratio 27.8 (10.0-20.0); Calcium 8.6 mg/dL (8.5-10.1); Potassium 4.7 mmol/L (3.5-5.1)
[2023-02-21 01:55] LABS: Bilirubin, Total 0.4 mg/dL (0.2-1.0); Total Protein 7.1 g/dL (6.4-8.2)
[2023-02-21] MEDS: IPRATROPIUM BROM 0.5 MG/2.5ML INH SOL NEB SCH ×7 (01:59→22:04)
[2023-02-21] MEDS: ALBUTEROL SULF 2.5 MG/0.5ML(0.5%) NEB SOLN NEB SCH ×7 (01:59→22:04)
[2023-02-21] MEDS: CLINDAMYCIN 300MG IV 50 ML IV SCH ×6 (03:01→20:48)
[2023-02-21] MEDS: hydrALAZINE HCL 25 MG TAB PO SCH ×3 (04:32→21:52)
[2023-02-21] MEDS: methylPREDNISolone SOD SUCC 40 MG/ML VL IV SCH ×3 (05:52→21:51)
[2023-02-21] MEDS: SODIUM CHLORIDE 0.9% 1,000 ML IV SCH ×2 (07:45→13:31)
[2023-02-21] MEDS ORDERED: LIDOCAINE 2%HCL (LOCAL ANESTH.) INJ 10ml MDV ONE ×2 (09:14→09:17)
[2023-02-21] MEDS ORDERED: fentaNYL CITRATE 100 MCG/2 ML VL ONE (09:18)
[2023-02-21] MEDS ORDERED: MIDAZOLAM HCL 2MG/2ML 2ml VIAL (1mg/ml) ONE (09:18)
[2023-02-21] MEDS ORDERED: IODIXANOL 320MG/ML 100ML BTL IV ONE (09:28)
[2023-02-21] MEDS ORDERED: VANCOMYCIN 1GM/250ML 250 ML IV ONE (09:33)
[2023-02-21] MEDS ORDERED: VANCOMYCIN HCL 1000 MG VL ONE (09:33)
[2023-02-21] MEDS ORDERED: hydrALAZINE HCL 20 MG/ML VL ONE (09:40)
[2023-02-21] MEDS: FOLIC ACID 1 MG TAB PO SCH (10:40)
[2023-02-21] MEDS: THIAMINE 100mg/ml INJ (200mg/2ml VIAL) IV SCH (10:40)
[2023-02-21] MEDS: PANTOPRAZOLE 40 MG/10 ML VIAL INJ IV SCH (10:40)
[2023-02-21] MEDS: cefTRIAXone 1GM/50ML D5W 50 ML IV SCH (10:40)
[2023-02-21] MEDS: TAMSULOSIN HYDROCHLORIDE 0.4 MG CAP PO SCH (10:40)
[2023-02-21] MEDS: amLODIPine BESYLATE 5 MG TAB PO SCH (10:41)
[2023-02-21] MEDS: POTASSIUM CHLORIDE 8 MEQ TAB PO SCH (10:41)
[2023-02-21] MEDS: HEPARIN SODIUM (PORCINE) 5000 UNITS/ML 1ML VIAL SC SCH ×2 (10:41→21:52)
[2023-02-21] MEDS: ACETAMINOPHEN 325 MG TAB PO PRN (16:07)
[2023-02-21] MEDS ORDERED: IOHEXOL 350 MG/ML 100ML IJ ONE (16:42)
[2023-02-21] MEDS: VANCOMYCIN 1GM/250ML 250 ML IV SCH (21:51)
[2023-02-22] MEDS: ACETAMINOPHEN 325 MG TAB PO PRN ×2 (01:41→21:31)
[2023-02-22] MEDS: SODIUM CHLORIDE 0.9% 1,000 ML IV SCH ×2 (01:41→15:45)
[2023-02-22] MEDS: ALBUTEROL SULF 2.5 MG/0.5ML(0.5%) NEB SOLN NEB SCH ×6 (02:33→22:29)
[2023-02-22] MEDS: IPRATROPIUM BROM 0.5 MG/2.5ML INH SOL NEB SCH ×6 (02:33→22:29)
[2023-02-22 02:45] VITALS: BP 140/72
[2023-02-22] MEDS: CLINDAMYCIN 300MG IV 50 ML IV SCH ×6 (02:57→21:19)
[2023-02-22 05:16] VITALS: BP 138/72
[2023-02-22] MEDS: methylPREDNISolone SOD SUCC 40 MG/ML VL IV SCH ×3 (05:36→21:30)
[2023-02-22] MEDS: hydrALAZINE HCL 25 MG TAB PO SCH ×3 (05:36→21:30)
[2023-02-22 08:00] VITALS: BP 155/78
[2023-02-22] MEDS ORDERED: IOHEXOL 350 MG/ML 100ML IJ ONE (09:33)
[2023-02-22] MEDS: cefTRIAXone 1GM/50ML D5W 50 ML IV SCH (09:40)
[2023-02-22] MEDS: HEPARIN SODIUM (PORCINE) 5000 UNITS/ML 1ML VIAL SC SCH ×2 (10:00→21:44)
[2023-02-22] MEDS: THIAMINE 100mg/ml INJ (200mg/2ml VIAL) IV SCH (11:23)
[2023-02-22] MEDS: VANCOMYCIN 1GM/250ML 250 ML IV SCH (11:24)
[2023-02-22] MEDS: FOLIC ACID 1 MG TAB PO SCH (11:24)
[2023-02-22] MEDS: amLODIPine BESYLATE 5 MG TAB PO SCH (11:25)
[2023-02-22] MEDS: PANTOPRAZOLE 40 MG/10 ML VIAL INJ IV SCH (11:25)
[2023-02-22] MEDS: TAMSULOSIN HYDROCHLORIDE 0.4 MG CAP PO SCH (11:26)
[2023-02-22] MEDS: POTASSIUM CHLORIDE 8 MEQ TAB PO SCH (11:27)
[2023-02-22 12:00] VITALS: BP 148/66
[2023-02-22 16:00] VITALS: BP 148/70
[2023-02-22 22:00] VITALS: BP 148/73
[2023-02-23] MEDS: SODIUM CHLORIDE 0.9% 1,000 ML IV SCH ×4 (01:36→23:46)
[2023-02-23] MEDS: ALBUTEROL SULF 2.5 MG/0.5ML(0.5%) NEB SOLN NEB SCH ×6 (02:00→22:46)
[2023-02-23] MEDS: IPRATROPIUM BROM 0.5 MG/2.5ML INH SOL NEB SCH ×7 (02:00→22:46)
[2023-02-23] MEDS: CLINDAMYCIN 300MG IV 50 ML IV SCH ×6 (03:26→20:28)
[2023-02-23 04:59] VITALS: BP 153/83
[2023-02-23] MEDS: hydrALAZINE HCL 25 MG TAB PO SCH ×3 (05:36→22:37)
[2023-02-23] MEDS: methylPREDNISolone SOD SUCC 40 MG/ML VL IV SCH ×3 (05:36→22:37)
[2023-02-23] MEDS: ACETAMINOPHEN 325 MG TAB PO PRN ×2 (08:40→14:50)
[2023-02-23] MEDS: cefTRIAXone 1GM/50ML D5W 50 ML IV SCH (08:41)
[2023-02-23 08:50] LABS: Hemoglobin 10.4 g/dL (13.5-17.5); Mean Corpuscular Hemoglobin 34.5 pg (28.0-32.0)
[2023-02-23 08:51] LABS: Hematocrit 30.9 % (41.0-53.0); Mean Corpuscular Hgb Conc. 33.6 g/dL (32.0-36.0); Mean Corpuscular Volume 102.7 fL (80.0-100.0); Red Cell Distribution Width 13.6 % (11.8-14.3); White Blood Cell 17.7 10^3/uL (4.4-10.8)
[2023-02-23 08:57] LABS: Basophils % (manual) 0 (0.0-2.0); Blast Cells 0; Eosinophils % (manual) 0 (0-7); Metamyelocytes % 0; Promyelocytes % 0; Reactive Lymphocytes 0
[2023-02-23 09:05] VITALS: BP 138/72
[2023-02-23 09:15] LABS: BUN/Creatinine Ratio 39.2 (10.0-20.0); Calcium 8.2 mg/dL (8.5-10.1); Magnesium 2.6 mg/dL (1.6-2.6); Potassium 3.8 mmol/L (3.5-5.1)
[2023-02-23 10:33] LABS: Band Neutrophils % (manual) 2; Lymphocytes % (manual) 2 (10.0-50.0); Monocytes % (manual) 3 (0-12); Myelocytes % 1
[2023-02-23] MEDS: FOLIC ACID 1 MG TAB PO SCH (10:40)
[2023-02-23] MEDS: TAMSULOSIN HYDROCHLORIDE 0.4 MG CAP PO SCH (10:40)
[2023-02-23] MEDS: PANTOPRAZOLE 40 MG/10 ML VIAL INJ IV SCH (10:41)
[2023-02-23] MEDS: amLODIPine BESYLATE 5 MG TAB PO SCH (10:41)
[2023-02-23] MEDS: THIAMINE 100mg/ml INJ (200mg/2ml VIAL) IV SCH (10:41)
[2023-02-23] MEDS: POTASSIUM CHLORIDE 8 MEQ TAB PO SCH (10:42)
[2023-02-23] MEDS: HEPARIN SODIUM (PORCINE) 5000 UNITS/ML 1ML VIAL SC SCH ×2 (10:43→22:40)
[2023-02-23 13:23] VITALS: BP 143/63
[2023-02-23 18:01] VITALS: BP 152/62
[2023-02-23 21:30] VITALS: BP 143/72
[2023-02-24] MEDS: IPRATROPIUM BROM 0.5 MG/2.5ML INH SOL NEB SCH ×6 (02:21→22:33)
[2023-02-24] MEDS: ALBUTEROL SULF 2.5 MG/0.5ML(0.5%) NEB SOLN NEB SCH ×6 (02:21→22:33)
[2023-02-24] MEDS: CLINDAMYCIN 300MG IV 50 ML IV SCH ×2 (02:47→04:00)
[2023-02-24 05:00] VITALS: BP 156/80
[2023-02-24] MEDS: methylPREDNISolone SOD SUCC 40 MG/ML VL IV SCH ×3 (05:50→21:29)
[2023-02-24] MEDS: hydrALAZINE HCL 25 MG TAB PO SCH ×4 (05:50→21:29)
[2023-02-24] MEDS: ACETAMINOPHEN 325 MG TAB PO PRN ×3 (07:45→22:18)
[2023-02-24] MEDS: cefTRIAXone 1GM/50ML D5W 50 ML IV SCH (07:46)
[2023-02-24 09:18] VITALS: BP 159/75
[2023-02-24] MEDS: POTASSIUM CHLORIDE 8 MEQ TAB PO SCH (10:13)
[2023-02-24] MEDS: TAMSULOSIN HYDROCHLORIDE 0.4 MG CAP PO SCH (10:13)
[2023-02-24] MEDS: FOLIC ACID 1 MG TAB PO SCH (10:13)
[2023-02-24] MEDS: HEPARIN SODIUM (PORCINE) 5000 UNITS/ML 1ML VIAL SC SCH ×2 (10:14→21:49)
[2023-02-24] MEDS: THIAMINE 100mg/ml INJ (200mg/2ml VIAL) IV SCH (10:14)
[2023-02-24] MEDS: PANTOPRAZOLE 40 MG/10 ML VIAL INJ IV SCH (10:14)
[2023-02-24] MEDS: amLODIPine BESYLATE 5 MG TAB PO SCH (10:15)
[2023-02-24] MEDS ORDERED: DOXYCYCLINE 100MG/250ML 250 ML IV SCH (10:45)
[2023-02-24 12:53] VITALS: BP 146/68
[2023-02-24] MEDS ORDERED: MORPHINE SULFATE INJ 2 MG/ml SYRG IV PRN (14:45)
[2023-02-24] MEDS ORDERED: LORazepam 0.5 MG TAB PO PRN (14:45)
[2023-02-24] MEDS ORDERED: hydrALAZINE HCL 20 MG/ML VL IV PRN (14:45)
[2023-02-24] MEDS ORDERED: NITROGLYCERIN 0.4 MG SL TAB SL PRN (14:45)
[2023-02-24 16:56] VITALS: BP 122/80
[2023-02-24 21:00] VITALS: BP 122/80
[2023-02-24] MEDS: DOXYCYCLINE 100MG/250ML 250 ML IV SCH (21:29)
[2023-02-24 22:00] VITALS: BP 152/78
[2023-02-24] MEDS: SODIUM CHLORIDE 0.9% 1,000 ML IV SCH (22:30)
[2023-02-25] MEDS: ALBUTEROL SULF 2.5 MG/0.5ML(0.5%) NEB SOLN NEB SCH ×6 (02:37→22:12)
[2023-02-25] MEDS: IPRATROPIUM BROM 0.5 MG/2.5ML INH SOL NEB SCH ×6 (02:37→22:12)
[2023-02-25 05:00] VITALS: BP 150/78
[2023-02-25] MEDS: ACETAMINOPHEN 325 MG TAB PO PRN ×2 (05:55→21:57)
[2023-02-25] MEDS: methylPREDNISolone SOD SUCC 40 MG/ML VL IV SCH ×3 (05:56→21:33)
[2023-02-25] MEDS: hydrALAZINE HCL 25 MG TAB PO SCH ×3 (05:56→21:58)
[2023-02-25] MEDS: SODIUM CHLORIDE 0.9% 1,000 ML IV SCH ×3 (07:25→22:30)
[2023-02-25 09:02] VITALS: BP 154/78
[2023-02-25] MEDS: DOXYCYCLINE 100MG/250ML 250 ML IV SCH ×2 (10:31→21:35)
[2023-02-25] MEDS: PANTOPRAZOLE 40 MG/10 ML VIAL INJ IV SCH (10:31)
[2023-02-25] MEDS: THIAMINE 100mg/ml INJ (200mg/2ml VIAL) IV SCH (10:31)
[2023-02-25] MEDS: FOLIC ACID 1 MG TAB PO SCH (10:32)
[2023-02-25] MEDS: POTASSIUM CHLORIDE 8 MEQ TAB PO SCH (10:32)
[2023-02-25] MEDS: TAMSULOSIN HYDROCHLORIDE 0.4 MG CAP PO SCH (10:32)
[2023-02-25] MEDS: amLODIPine BESYLATE 5 MG TAB PO SCH (10:33)
[2023-02-25] MEDS: HEPARIN SODIUM (PORCINE) 5000 UNITS/ML 1ML VIAL SC SCH ×2 (10:34→21:42)
[2023-02-25 12:12] LABS: BUN/Creatinine Ratio 29.1 (10.0-20.0); Calcium 8.9 mg/dL (8.5-10.1); Potassium 4.5 mmol/L (3.5-5.1)
[2023-02-25 13:00] VITALS: BP 132/81
[2023-02-25 17:00] VITALS: BP 152/78
[2023-02-25 21:57] VITALS: BP 110/59
[2023-02-26] MEDS: ALBUTEROL SULF 2.5 MG/0.5ML(0.5%) NEB SOLN NEB SCH ×4 (02:15→14:26)
[2023-02-26] MEDS: IPRATROPIUM BROM 0.5 MG/2.5ML INH SOL NEB SCH ×4 (02:15→14:26)
[2023-02-26 05:00] VITALS: BP 143/68
[2023-02-26] MEDS: methylPREDNISolone SOD SUCC 40 MG/ML VL IV SCH ×2 (06:00→15:00)
[2023-02-26] MEDS: SODIUM CHLORIDE 0.9% 1,000 ML IV SCH ×2 (06:30→14:30)
[2023-02-26] MEDS: hydrALAZINE HCL 25 MG TAB PO SCH ×2 (06:52→15:00)
[2023-02-26] MEDS: ACETAMINOPHEN 325 MG TAB PO PRN (07:22)
[2023-02-26 09:00] VITALS: BP 146/62
[2023-02-26] MEDS: PANTOPRAZOLE 40 MG/10 ML VIAL INJ IV SCH (10:32)
[2023-02-26] MEDS: FOLIC ACID 1 MG TAB PO SCH (10:33)
[2023-02-26] MEDS: DOXYCYCLINE 100MG/250ML 250 ML IV SCH (10:33)
[2023-02-26] MEDS: THIAMINE 100mg/ml INJ (200mg/2ml VIAL) IV SCH (10:33)
[2023-02-26] MEDS: POTASSIUM CHLORIDE 8 MEQ TAB PO SCH (10:34)
[2023-02-26] MEDS: TAMSULOSIN HYDROCHLORIDE 0.4 MG CAP PO SCH (10:35)
[2023-02-26] MEDS: amLODIPine BESYLATE 5 MG TAB PO SCH (10:35)
[2023-02-26] MEDS: HEPARIN SODIUM (PORCINE) 5000 UNITS/ML 1ML VIAL SC SCH (10:53)
[2023-02-26 13:00] VITALS: BP 99/63
[2023-02-26] MEDS ORDERED: DOXYCYCLINE 100 MG TAB/CAP PO SCH (22:00)
== END 2023-02-26 17:37 | DRG 853 ==
LOC: ER 07:22 → TELE 10:23 → TELE-WESTW 02-19 09:07
PROVIDERS: ADMIT Registered Nurse; ATTEND Internal Medicine
PROC: 4A00X4Z Measurement of Central Nervous Electrical Activity, External Approach (ICD-10-PCS; principal; 2023-02-19)
PROC: 0JH606Z Insertion of Pacemaker, Dual Chamber into Chest Subcutaneous Tissue and Fascia, Open Approach (ICD-10-PCS; 2023-02-21)
PROC: 02H63JZ Insertion of Pacemaker Lead into Right Atrium, Percutaneous Approach (ICD-10-PCS; 2023-02-21)
PROC: 02HK3JZ Insertion of Pacemaker Lead into Right Ventricle, Percutaneous Approach (ICD-10-PCS; 2023-02-21)
PROC: B5171ZZ Fluoroscopy of Left Subclavian Vein using Low Osmolar Contrast (ICD-10-PCS; 2023-02-21)
DX: A41.9 Sepsis, unspecified organism (principal); G93.41 Metabolic encephalopathy; J96.01 Acute respiratory failure with hypoxia; N17.0 Acute kidney failure with tubular necrosis; L03.115 Cellulitis of right lower limb; J45.901 Unspecified asthma with (acute) exacerbation; I44.2 Atrioventricular block, complete; L03.116 Cellulitis of left lower limb; J98.11 Atelectasis; E78.5 Hyperlipidemia, unspecified; D53.9 Nutritional anemia, unspecified; I65.29 Occlusion and stenosis of unspecified carotid artery; I70.201 Unspecified atherosclerosis of native arteries of extremities, right leg; N18.31 Chronic kidney disease, stage 3a; I49.8 Other specified cardiac arrhythmias; I12.9 Hypertensive chronic kidney disease with stage 1 through stage 4 chronic kidney disease, or unspecified chronic kidney disease; F17.210 Nicotine dependence, cigarettes, uncomplicated; R29.6 Repeated falls; N40.1 Benign prostatic hyperplasia with lower urinary tract symptoms; R33.8 Other retention of urine; I25.10 Atherosclerotic heart disease of native coronary artery without angina pectoris; Z20.822 Contact with and (suspected) exposure to COVID-19; K81.9 Cholecystitis, unspecified; G30.9 Alzheimer's disease, unspecified; F02.80 Dementia in other diseases classified elsewhere, unspecified severity, without behavioral disturbance, psychotic disturbance, mood disturbance, and anxiety; Z79.891 Long term (current) use of opiate analgesic; Z79.899 Other long term (current) drug therapy; I25.2 Old myocardial infarction; Z82.3 Family history of stroke; Z95.0 Presence of cardiac pacemaker
CPT/HCPCS: 33206; 36415; 70450; 71045; 72192; 75635; 76700; 80048; 80053; 80061; 80307; 80320; 81001; 82607; 82746; 83036; 83605; 83735; 83880; 84443; 84484; 85007; 85025; 85027; 85610; 85730; 86850; 86900; 86901; 87040; 87077; 87186; 87205; 87426; 93005; 93306; 93886; 93925; 93970; 94640; 95819; 96365; 96367; 97110; 97116; 97163; 97530; 99152; 99153; C1785; C9113; G0378; J0696; J2001; J2250; J3490; Q9967